=== PATIENT | female | born 1950 | race Caucasian/White ===

== ENCOUNTER 2025-09-05 16:53 | Outpatient (CLI) | payer MEDICARE, BC ==
[2025-09-05 17:18] LABS: #Basophils 0.1 thou/uL (0.0-0.2); #Eosinophils 0.1 thou/uL (0.0-0.7); #Lymphocytes 2.2 thou/uL (1.20-3.40); #Monocytes 0.7 thou/uL (0.11-0.59); #Neutrophils 5.4 thou/uL (1.40-6.50); %Basophils 1.2 % (0.0-1.0); %Eosinophils 1.5 % (0.0-10.0); %Lymphocytes 25.4 % (21.0-51.0); %Monocytes 8.1 % (0.0-10.0); %Neutrophils 63.8 % (42.0-75.0); Hematocrit 43.0 % (36.0-47.0); Hemoglobin 13.8 g/dL (12.0-16.0); Mean Corpuscular Hemoglobin 28.4 pg (27.0-31.0); Mean Corpuscular Volume 88.4 fl (78.0-98.0); Platelet Count 200 10x3/uL (130-400); Red Blood Cell (RBC) Count 4.86 mill/uL (4.20-5.40); White Blood Cell (WBC) Count 8.5 10x3/uL (4.8-10.8)
== END 2025-09-05 16:54 | disposition home or self-care (01) ==
LOC: MADLAB 16:53
PROVIDERS: ATTEND Emergency Medicine Emergency Medical Services
DX: M35.3 Polymyalgia rheumatica (principal)
CPT/HCPCS: 36415; 83520; 85025; 86140